=== PATIENT | female | born 1985 | race Caucasian/White ===

== ENCOUNTER 2017-01-31 15:49 | Emergency (ER) | payer MEDICAID, OTHER ==
[~2017-01-31 15:49] MED LIST: Sodium Chloride 0.9% 1,000 ML IV ONE
[2017-01-31] MEDS ORDERED: Rocuronium 50 MG/5 ML Vial ONE ×2 (16:00→17:17)
[2017-01-31] MEDS ORDERED: Midazolam 1 MG/ML 2 ML SDV ONE ×3 (16:00→17:16)
[2017-01-31] MEDS ORDERED: Etomidate 2 MG/ML 10 ML SDV ONE ×2 (16:00→17:16)
[2017-01-31] MEDS ORDERED: fentaNYL 100 MCG/2 ML SDV ONE ×2 (16:00→17:16)
[2017-01-31] MEDS ORDERED: Succinylcholine 200 MG/10 ML MDV ONE ×3 (16:00→17:17)
[2017-01-31] MEDS ORDERED: Sodium Chloride 0.9% 1,000 ML IV ONE (16:10)
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
== END 2017-01-31 17:15 | disposition short-term general hospital (02) ==
LOC: VM.ED 15:49
DX: J96.90 Respiratory failure, unspecified, unspecified whether with hypoxia or hypercapnia (principal); S29.9XXA Unspecified injury of thorax, initial encounter; F17.210 Nicotine dependence, cigarettes, uncomplicated; Z79.899 Other long term (current) drug therapy; V89.2XXA Person injured in unspecified motor-vehicle accident, traffic, initial encounter
CPT/HCPCS: 31500; 36415; 51702; 71010; 80047; 80305; 81001; 81025; 82550; 82553; 84484; 85025; 85610; 85730; 96374; 96375; 96376; 99291; 99292; G0390; G0480; J0330; J2250; J3010; J7030